=== PATIENT | male | born 1960 | race Caucasian/White ===

== ENCOUNTER 2023-05-25 14:43 | Emergency (ER) | payer OTHER, SELFPAY ==
[2023-05-25] VITALS (12 sets, daily range): BP systolic 122–165; BP diastolic 58–104; PULSE 88–90; RESP 20; TEMP 36.7; O2SAT 94–96; BMI 55.7
[2023-05-25 15:50] LABS: Basophils # 0.1 10^3/uL (0.0-0.1); Basophils % 0.6 %; Eosinophils # 0.2 10^3/uL (0.0-0.8); Eosinophils % 2.3 %; Hematocrit 44.6 % (42.0-52.0); Hemoglobin 15.1 g/dL (11.7-16.6); Lymphocytes # 0.9 10^3/uL (0.8-4.8); Lymphocytes % 10.2 %; Mean Corpuscular HGB Conc 33.9 g/dL (30.0-36.0); Mean Corpuscular Hemoglobin 28.5 pg (28.0-34.0); Mean Corpuscular Volume 84.3 fl (80-94); Mean Platelet Volume 10.8 fL (7.4-10.4); Monocytes # 0.6 10^3/uL (0.2-0.9); Monocytes % 6.4 %; Neutrophils # 7.23 10^3/uL (1.8-7.7); Neutrophils % 80.2 %; Nucleated Red Blood Cells % 0 %; Platelet Count 193 10^3/cmm (130-400); Red Blood Count 5.29 10^6/uL (4.1-5.3); Red Cell Distribution Width 15.3 % (12.1-15.1)
[2023-05-25 15:56] LABS: Glucose Urine UA 4+ (Normal); Protein Urine 1+ (Negative); Specific Gravity, Urine 1.015 (1.005-1.030); Urine Appearance Clear (CLEAR); Urine Color Straw (Yellow); pH Urine 5 (5-7)
[2023-05-25 15:57] LABS: Add Urine Culture? No; Add Urine Microscopic? YES; Bacteria Urine TRACE /hpf; Bilirubin Urine Neg (Negative); Blood Urine 2+ (Negative); Ketones Urine Negative (Negative); Leukocyte Esterase Urine Negative (Negative); Nitrate Urine Negative (Negative); Urobilinogen Urine Norm (Negative); WBC Urine 0-4 /hpf (0-5)
[2023-05-25] MEDS: insulin regular-human 100 units/1 mL 10 UNIT IVP ×2 (16:01→17:53)
[2023-05-25 16:30] LABS: Alanine Aminotransferase 25 U/L (0-41); Albumin Level 3.5 g/dL (3.5-5.2); Alkaline Phosphatase 141 U/L (40-130); Anion Gap 15.2 (5-19); Aspartate Amino Transferase 17 U/L (0-40); Blood Urea Nitrogen 25 mg/dL (8-23); Carbon Dioxide 25 mmol/L (22-29); Chloride 95 mmol/L (98-107); Globulin 3.3 g/dL (1.3-4.6); Glucose 461 mg/dL (65-115); Ketone (Acetest) Serum Negative (Negative); Osmolality Calculated 295 mOsm/kg (285-295); Potassium 5.2 mmol/L (3.5-5.1); Sodium 130 mmol/L (136-145); Total Bilirubin 0.3 mg/dL (0.15-1.2); Total Protein 6.8 g/dL (6.6-8.7)
[2023-05-25] MEDS: acetaminophen 500 mg Tablet 1000 MG PO (16:58)
--- NOTE | 2023-05-25 16:59 | ED_ITS ---
HPI - Recheck/Abnormal Lab/Rx General: Chief Complaint: Recheck/Abnormal Lab/Rx Stated Complaint: hyperglycemia Time Seen by Provider: 05/25/23 14:56 Source: patient Mode of arrival: ambulatory History of Present Illness: 63-year-old male is traveling to the area presents [facility] emergency room with complaint of elevated blood sugar he was concerned about blood sugar is not feeling well he had not packed his glucometer so he did not have a way to check his glucose EMS checked it and it was in excess of 500 on arrival here it was upper 400s. Patient denies any fever sweats chills nausea vomiting or diarrhea no dysuria urgency or frequency. MD complaint: abnormal lab (Elevated blood sugars) Associated symptoms: none Review of Systems Const: Denies: fever(s), chills, body aches, change in appetite, fatigue or malaise ENMT: Denies: throat pain, ear or mastoid pain, nasal discharge or nasal congestion Card: Denies: chest pain, edema, dyspnea on exertion or orthopnea Resp: Denies: dyspnea, productive cough or non-productive cough GI: Denies: abdominal pain, nausea, vomiting, hematemesis, coffee ground emesis, diarrhea, constipation, bloating, hematochezia or melena : Denies: flank pain, dysuria, urinary frequency or urinary urgency Musc: Denies: neck pain or back pain Skin/Breast: Denies: rash or pruritus Physical Exam 2 Const: GENERAL APPEARANCE: cooperative and comfortable NUTRITIONAL APPEARANCE: obese morbidly obese ORIENTATION/CONSCIOUSNESS: Yes awake, Yes oriented to person, Yes oriented to place and Yes oriented to time HENMT: COMMON NORMALS: normocephalic, atraumatic and hearing grossly normal bilaterally HEAD & SCALP: normocephalic and atraumatic Resp: COMMON NORMALS: normal respiratory effort, No retractions, No use of accessory muscles and clear to auscultation bilaterally AUSCULTATION: clear to auscultation bilaterally Cardio: COMMON NORMALS: regular rate, regular rhythm and No murmurs present (Cardio) RATE: regular rate RHYTHM: regular rhythm GI: COMMON NORMALS: Soft to palpation and No hepatosplenomegaly present AUSCULTATION: Yes normoactive bowel sounds PALPATION: Yes Soft to palpation, No Tenderness to palpation present (GI), No Guarding due to palpation present (GI) and Yes No hepatosplenomegaly present Extremity: COMMON NORMALS: normal to inspection, capillary refill normal, no clubbing, cyanosis or edema, no calf tenderness and no pedal edema Neuro: SENSORIUM/ORIENTATION: Yes oriented to person, Yes oriented to place and Yes oriented to time Skin: COMMON NORMALS: no rashes or lesions noted GENERAL SKIN EXAM: no rashes or lesions noted Course Vital Signs: Vital signs: Vital Signs Temperature 98.1 F 05/25/23 14:46 Pulse Rate 88 05/25/23 18: Respiratory Rate 20 H 05/25/23 18:26 Blood Pressure 140/103 05/25/23 18:26 Pulse Oximetry 96 05/25/23 18:26 Oxygen Delivery Me thod Nasal Cannula 05/25/23 14:46 Oxygen Flow Rate 2 05/25/23 14:46 MDM - Recheck/Abnormal Lab/Rx Medical Decision Making Accu-Chek improved after insulin and fluids we will discharge patient home. He is traveling to the area his was able to get a glucometer he has insulin and all the other diabetic supplies he needs. He feels comfortable at this point that he can manage it with his usual regimens of his sliding scale long- term insulin return if needed. Mild hyperkalemia given the fluids he was given and the insulin expect this will have resolved he denies being on any potassium supplement. Medical Records I reviewed the patient's medical records. Lab Data I reviewed the patient's lab results. 05/25/23 15:26 05/25/23 15:26 Laboratory Results WBC 9.0 10^3/uL (4.0-10.0) 05/25/23 15: RBC 5.29 10^6/uL (4.1-5.3) 05/25/23 15: Hgb 15.1 g/dL (11.7-16.6) 05/25/23 15: Hct 44.6 % (42.0-52.0) 05/25/23 15: MCV 84.3 fl (80-94) 05/25/23 15: MCH 28.5 pg (28.0-34.0) 05/25/23 15: MCHC 33.9 g/dL (30.0-36.0) 05/25/23 15: RDW 15.3 % (12.1-15.1) H 05/25/23 15:26 Plt Count 193 10^3/cmm (130-400) 05/25/23 15: MPV 10.8 fL (7.4-10.4) H 05/25/23 15:26 Neut % (Auto) 80.2 % 05/25/23 15: Lymph % (Auto) 10.2 % 05/25/23 15:26 [place] % (Auto) 6.4 % 05/25/23 15:26 Eos % (Auto) 2.3 % 05/25/23 15:26 Baso % (Auto) 0.6 % 05/25/23 15: Neut # (Auto) 7.23 10^3/uL (1.8-7.7) 05/25/23 15: Lymph # (Auto) 0.9 10^3/uL (0.8-4.8) 05/25/23 15: [place] # (Auto) 0.6 10^3/uL (0.2-0.9) 05/25/23 15: Eos # (Auto) 0.2 10^3/uL (0.0-0.8) 05/25/23 15: Baso # (Auto) 0.1 10^3/uL (0.0-0.1) 05/25/23 15: Nucleated RBC % (auto) 0 % 05/25/23 15: Nucleated RBCs # 0.0 /100WBC 05/25/23 15:26 Sodium 130 mmol/L (136-145) L 05/25/23 15:26 Potassium 5.2 mmol/L (3.5-5.1) H 05/25/23 15:26 Chloride 95 mmol/L (98-107) L 05/25/23 15:26 Carbon Dioxide 25 mmol/L (22-29) 05/25/23 15:26 Anion Gap 15.2 (5-19) 05/25/23 15:26 BUN 25 mg/dL (8-23) H 05/25/23 15:26 Creatinine 0.8 mg/dL (0.7-1.2) 05/25/23 15:26 GFR Calculation 97.0 mL/min (90-130) 05/25/23 15:26 Glucose 461 mg/dL (65-115) H 05/25/23 15:26 Calculated Osmolality 295 mOsm/kg (285-295) 05/25/23 15:26 Calcium 9.0 mg/dL (8.5-10.5) 05/25/23 15:26 Total Bilirubin 0.3 mg/dL (0.15-1.2) 05/25/23 15:26 AST 17 U/L (0-40) 05/25/23 15:26 ALT 25 U/L (0-41) 05/25/23 15:26 Alkaline Phosphatase 141 U/L (40-130) H 05/25/23 15:26 Total Protein 6.8 g/dL (6.6-8.7) 05/25/23 15:26 Albumin 3.5 g/dL (3.5-5.2) 05/25/23 15:26 Globulin 3.3 g/dL (1.3-4.6) 05/25/23 15:26 Urine Color Straw (Yellow) 05/25/23 15:15 Urine Appearance Clear (CLEAR) 05/25/23 15:15 Urine pH 5 (5-7) 05/25/23 15:15 Ur Specific [place] 1.015 (1.005-1.030) 05/25/23 15:15 Urine Protein 1+ (Negative) H 05/25/23 15:15 Urine Glucose (UA) 4+ (Normal) H 05/25/23 15:15 Urine Ketones Negative (Negative) 05/25/23 15:15 Urine Blood 2+ (Negative) H 05/25/23 15:15 Urine Nitrate Negative (Negative) 05/25/23 15:15 Urine Bilirubin Neg (Negative) 05/25/23 15:15 Urine Urobilinogen Norm mg/dL (Negative) 05/25/23 15:15 Ur Leukocyte Esterase Negative (Negative) 05/25/23 15:15 Urine RBC None /hpf (0-2) 05/25/23 15:15 Urine WBC 0-4 /hpf (0-5) H 05/25/23 15:15 Ur Squamous Epith Cells None /hpf (0-5) 05/25/23 15:15 Amorphous Sediment Not Reportable 05/25/23 15:15 Urine Bacteria Trace /hpf (NONE) 05/25/23 15:15 Serum Ketones Negative (Negative) 05/25/23 15:26 Discharge Plan Discharge Patient Disposition: Home Clinical Impression: Acute hyperglycemia Condition: Stable Discharge Orders: Discharge ED (Routine); Ordered 05/25/23 Ordered By: Merlin Gomez Discharge Diet: Usual diet Discharge Activity: Increase activity as tolerated Patient Instructions: Opioid Safety, Pain Management Activity Restrictions/Additional Instructions: Monitor blood sugars closely use your regular insulin as needed to control. Coding Level of Care Code ED Electrical Logger for Jerry Servin
[2023-05-26 08:30] LABS: Glucose Point of Care 305 mg/dL (70-110)
[2023-05-26 08:30] LABS: Glucose Point of Care 460 mg/dL (70-110)
[2023-05-26 08:30] LABS: Glucose Point of Care 265 mg/dL (70-110)
--- NOTE | 2023-06-03 13:41 | DCPLANNER ---
legal services manager was triggered to call patient due to no primary care physician - patient does not live in the area.
== END 2023-05-25 18:27 | disposition home or self-care (01) ==
PROVIDERS: Emergency Provider Family Medicine
DX: E11.65 Type 2 diabetes mellitus with hyperglycemia (principal); Z79.4 Long term (current) use of insulin
CPT/HCPCS: 36415; 36416; 80053; 81001; 82009; 82962; 85025; 96374; 96376; 99284; J1815